=== PATIENT | female | born 1990 | race Native Hawaiian/Other Pacific Islander ===

== ENCOUNTER 2016-11-07 22:35 | Emergency (ER) | payer OTHER ==
[~2016-11-07] VITALS: Ht 165.1 cm; Wt 83.9 kg
== END 2016-11-08 00:19 | disposition home or self-care (01) ==
LOC: ED 22:35
DX: T22.312A Burn of third degree of left forearm, initial encounter (principal); T31.0 Burns involving less than 10% of body surface; X10.2XXA Contact with fats and cooking oils, initial encounter; Y92.89 Other specified places as the place of occurrence of the external cause
CPT/HCPCS: 90471; 90715; 99283; J7040

== ENCOUNTER 2021-04-28 18:54 | Emergency (ER) | payer OTHER ==
[~2021-04-28] VITALS: Ht 165.1 cm; Wt 93.9 kg
[2021-04-28 19:05] VITALS: BP 130/74; TEMP 100
== END 2021-04-28 21:45 | disposition home or self-care (01) ==
LOC: ED 18:54
DX: Z53.21 Procedure and treatment not carried out due to patient leaving prior to being seen by health care provider (principal)
CPT/HCPCS: 99281